=== PATIENT | female | born 1955 | race Caucasian/White ===

== ENCOUNTER → 2017-07-22 10:28 | Outpatient (CLI) | payer OTHER | END | disposition home or self-care (01) | LOC: D.CT 10:28 | DX: R10.9 Unspecified abdominal pain (principal) ==

== ENCOUNTER 2018-02-15 16:36 | Emergency (ER) | payer SELFPAY ==
[~2018-02-15] VITALS: Ht 157.5 cm; Wt 81.8 kg
[2018-02-15 16:36] VITALS: Ht 157.5 cm; Wt 81.8 kg
[2018-02-15] MEDS ORDERED: NIASPAN500 MG PO (16:56)
[2018-02-15] MEDS ORDERED: LINZESS290 MCG PO (16:56)
[2018-02-15] MEDS ORDERED: KEFLEX500 MG (16:56)
[2018-02-15] MEDS ORDERED: ZEBETA10 MG PO (16:56)
[2018-02-15] MEDS ORDERED: PROAIR HFA8.5 GM (16:57)
[2018-02-15] MEDS ORDERED: ZOCOR20 MG (16:57)
[2018-02-15] MEDS ORDERED: STERAPRED 5MG 125 MG PO (16:57)
[2018-02-15] MEDS ORDERED: OMEPRAZOLE20 M1 PO (16:57)
[2018-02-15 18:03] LABS: BASOPHILS 0.1 % (0-2); EOSINOPHILS 0.1 % (0-7); HEMATOCRIT 43.2 % (36.0-48.0); HEMOGLOBIN 14.9 g/dL (12-16); IMMATURE GRANULOCYTES 0.3 % (0-5); LYMPHOCYTES 9.3 % (15-50); MCH 30.2 pg (26.0-34.0); MCHC 34.5 g/dL (31.0-37.0); MCV 87.6 fL (80.0-100.0); MEAN PLATELET VOLUME 12.5 fL (7.4-10.4); MONOCYTES 4.6 % (2-11); NEUTROPHILS 85.6 % (40-80); PLATELET COUNT 229 10x3/uL (130-400); RBC 4.93 10x6/uL (4.00-5.40); RDW 12.6 % (11.5-14.5); WBC 14.9 10x3/uL (4.8-10.8)
[2018-02-15 18:27] LABS: ALKALINE PHOSPHATASE 79 U/L (46-116); ALT (SGPT) 59 U/L (10-68); BILIRUBIN - TOTAL 0.46 mg/dL (0.2-1.3); CALC OSMOLALITY 286 mosm/kg (275-300); CALCIUM 9.1 mg/dL (8.5-10.1); CARBON DIOXIDE 27.8 mmol/L (21.0-32.0); CHLORIDE - SERUM 107 mmol/L (98-107); CREATININE - SERUM 0.7 mg/dL (0.6-1.3); GLUCOSE 121 mg/dL (74-106); LIPASE 160 U/L (73-393); POTASSIUM - SERUM 4.2 mmol/L (3.5-5.1); PROTEIN - SERUM 7.3 g/dL (6.4-8.2); SODIUM 144 mmol/L (136-145); UREA NITROGEN 11 mg/dL (7-18); eGFR NON AFRICAN AMERICAN 90 mL/min (90-120)
[2018-02-15 19:41] LABS: APPEARANCE CLEAR (CLEAR); BILIRUBIN NEGATIVE (NEGATIVE); COLOR YELLOW (YELLOW); GLUCOSE NEGATIVE (NEGATIVE); KETONE MODERATE mg/dL (NEGATIVE); NITRITE NEGATIVE (NEGATIVE); PROTEIN NEGATIVE (NEGATIVE); UROBILINOGEN NORMAL (NORMAL)
[2018-02-15] MEDS ORDERED: ZOFRAN ODT4 MG/UDTAB PO (20:06)
[2018-02-15] MEDS ORDERED: TYLENOL W/CODEI1 TAB PO (20:06)
[2018-02-16 04:36] VITALS: BP 142/90
== END 2018-02-15 20:44 | disposition home or self-care (01) ==
LOC: D.ER 16:36
PROVIDERS: Family Medicine
DX: A08.4 Viral intestinal infection, unspecified (principal); R11.2 Nausea with vomiting, unspecified; I10 Essential (primary) hypertension

== ENCOUNTER → 2018-11-04 13:11 | Outpatient (CLI) | payer OTHER ==
[2018-02-15 16:36] VITALS: BMI 33.0
[~2018-11-04 13:11] MED LIST: KEFLEX500 MG; LINZESS290 MCG PO; NIASPAN500 MG PO; OMEPRAZOLE20 M1 PO; PROAIR HFA8.5 GM; STERAPRED 5MG 125 MG PO; TYLENOL W/CODEI1 TAB PO; ZEBETA10 MG PO; ZOCOR20 MG; ZOFRAN ODT4 MG/UDTAB PO
== END | disposition home or self-care (01) ==
LOC: D.RAD 13:11
PROVIDERS: ATTEND Allergy & Immunology
DX: J32.9 Chronic sinusitis, unspecified (principal)